=== PATIENT | female | born 1975 | race Caucasian/White ===

== ENCOUNTER 2017-07-02 14:35 | Emergency (ER) | payer SELFPAY ==
[2017-07-02 15:34] LABS: ADD MAN DIFF? NO
[2017-07-02 15:38] LABS: BASO % 1 % (0-3); EOS % 1 % (0-3); HEMATOCRIT 41.3 % (36.0-47.0); HEMOGLOBIN 13.7 g/dL (12.0-15.5); LYMPH # 1.5 x10^3/uL (1.0-4.8); LYMPH % 33 % (24-48); MEAN CORPUSCULAR HEMOGLOBIN 29 pg (25-35); MEAN CORPUSCULAR HGB CONC 33 g/dL (31-37); MEAN CORPUSCULAR VOLUME 86 fL (79-100); MONO # 0.3 x10^3/uL (0.0-1.1); MONO % 6 % (0-9); NEUT # 2.7 x10^3uL (1.8-7.7); NEUT % 59 % (31-73); PLATELET COUNT 293 x10^3/uL (140-400); RED BLOOD COUNT 4.79 x10^6/uL (3.50-5.40); RED CELL DISTRIBUTION WIDTH 14.8 % (11.5-14.5); WHITE BLOOD COUNT 4.5 x10^3/uL (4.0-11.0)
[2017-07-02 15:58] LABS: ANION GAP 9 (6-14); BLOOD UREA NITROGEN 6 mg/dL (7-20); BUN/CREATININE RATIO 9 (6-20); CALCIUM 9.2 mg/dL (8.5-10.1); CARBON DIOXIDE 28 mmol/L (21-32); CHLORIDE 107 mmol/L (98-107); CREATININE 0.7 mg/dL (0.6-1.0); GFR 92.7; GLUCOSE 82 mg/dL (70-99); POTASSIUM 3.2 mmol/L (3.5-5.1); SODIUM 144 mmol/L (136-145)
[2017-07-02 16:04] LABS: ALBUMIN 3.6 g/dL (3.4-5.0); ALBUMIN/GLOBULIN RATIO 0.9 (1.0-1.7); ALK PHOS 80 U/L (46-116); ALT (SGPT) 18 U/L (14-59); AST (SGOT) 14 U/L (15-37); LIPASE 109 U/L (73-393); NEG OBC SER NEG; POS OBC SER POS; PREG TEST PT QUAL NEGATIVE (NEG); TOTAL BILIRUBIN 0.3 mg/dL (0.2-1.0); TOTAL PROTEIN 7.7 g/dL (6.4-8.2)
[2017-07-02 16:19] LABS: NT-PRO BNP 39 pg/mL (0-124)
[2017-07-02 16:22] LABS: THYROID STIM HORMONE (TSH) 1.278 uIU/mL (0.358-3.74)
[2017-07-02 16:25] LABS: TROPONINI < 0.017 ng/mL (0.000-0.055)
[2017-07-02] MEDS: FLECAINIDE ACETATE 50 MG TABLET. PO (16:28)
[2017-07-02] MEDS: POTASSIUM CHLORIDE 20 MEQ TABLET.ER. PO (16:29)
== END 2017-07-02 16:36 | disposition home or self-care (01) ==
LOC: ER 14:35
DX: R55 Syncope and collapse (principal); E87.6 Hypokalemia; R00.2 Palpitations; I47.1 Supraventricular tachycardia; F41.9 Anxiety disorder, unspecified; I25.2 Old myocardial infarction; K31.84 Gastroparesis; I45.6 Pre-excitation syndrome; F17.210 Nicotine dependence, cigarettes, uncomplicated; Z90.49 Acquired absence of other specified parts of digestive tract; Z90.721 Acquired absence of ovaries, unilateral; Z88.8 Allergy status to other drugs, medicaments and biological substances
CPT/HCPCS: 36415; 71045; 80053; 83690; 83880; 84443; 84484; 84703; 85025; 93005; 99285-25

== ENCOUNTER 2017-08-30 21:21 | Emergency (ER) | payer SELFPAY | END 2017-08-30 23:32 | disposition home or self-care (01) | LOC: ER 21:21 | DX: S00.83XA Contusion of other part of head, initial encounter (principal); F41.9 Anxiety disorder, unspecified; I25.2 Old myocardial infarction; Z88.8 Allergy status to other drugs, medicaments and biological substances; W10.9XXA Fall (on) (from) unspecified stairs and steps, initial encounter; Y93.89 Activity, other specified; Y92.89 Other specified places as the place of occurrence of the external cause; Y99.8 Other external cause status | CPT/HCPCS: 70450; 70486; 99284-25 ==